=== PATIENT | female | born 1985 | race Two or more races ===

== ENCOUNTER 2020-04-27 11:52 | Outpatient (CLI) | payer BC ==
--- NOTE | 2020-04-27 12:36 | RAD ---
EXAM: XR Knee Lt 3 View PROVIDED CLINICAL HISTORY: Pain FINDINGS: There is no evidence for fracture or other acute osseous abnormality. Alignment appears anatomic. Alesha nt spaces appear preserved. IMPRESSION: No evidence for an acute osseous abnormality or significant arthropathy.
== END 2020-04-27 11:53 | disposition home or self-care (01) ==
LOC: BICRAD 11:52
PROVIDERS: ATTEND Family Medicine
DX: M25.562 Pain in left knee (principal)

== ENCOUNTER 2020-04-30 09:50 | Outpatient (CLI) | payer BC ==
--- NOTE | 2020-04-30 15:05 | MRI ---
MRI OF THE RIGHT KNEE WITHOUT CONTRAST: INDICATION: Acute right knee pain. COMPARISON: Right knee radiographs dated 04/19/2020. FINDINGS: There is a focal full-thickness articular cartilage defect involving the anterior aspect of the later al femoral condyle measuring 1.1 x 1.0 cm. There is a vertically oriented tear involving the anterio r horn of the lateral meniscus. The medial meniscus is intact. There is a full-thickness articular cartilage defect involving the medial femoral trochlea measuring 8 mm. There is a 6 and 4 mm intraar ticular body seen adjacent to the PCL. The MCL, ACL, PCL, and LCLC are intact. The extensor mechanis m is intact. There are small marginal osteophytes affecting the major compartments of the left knee. IMPRESSION: 1. Focal full-thickness articular cartilage defect of the anterolateral lateral femoral condyle with intraarticular bodies. 2. Vertically oriented tear involving the superior aspect of the anterior horn of the lateral menisc us. 3. Small focal full-thickness defect involving the medial femoral trochlea measuring 8 mm. POS: BH
== END 2020-04-30 09:51 | disposition home or self-care (01) ==
LOC: TBSIIMAG 09:50
PROVIDERS: ATTEND Orthopaedic Surgery
DX: M25.561 Pain in right knee (principal); S83.281A Other tear of lateral meniscus, current injury, right knee, initial encounter; M94.8X6 Other specified disorders of cartilage, lower leg

== ENCOUNTER 2020-05-22 07:48 | Outpatient (CLI) | payer BC, OTHER ==
[2020-05-22 11:35] LABS: BHCG - Serum Negative (NEGATIVE); Pregs Control Background? CLEAR/WHITE (CLR/WHITE); Pregs Control Bar Appear? YES (CONTROL BAR)
[2020-05-22 17:27] LABS: SARS-CoV-2 MS2 Positive; SARS-CoV-2 N Gene Negative; SARS-CoV-2 S Gene Negative; SARS-CoV-2 by NAA Not Detected (NotDetected); SARS-CoV-2 orf1ab Negative
== END 2020-05-22 07:49 | disposition home or self-care (01) ==
LOC: LABBT 07:48
PROVIDERS: ATTEND Orthopaedic Surgery
DX: Z01.812 Encounter for preprocedural laboratory examination (principal); Z20.828 Contact with and (suspected) exposure to other viral communicable diseases; S83.281A Other tear of lateral meniscus, current injury, right knee, initial encounter; M24.19 Other articular cartilage disorders, other specified site
CPT/HCPCS: 84703; 87635; U0003

== ENCOUNTER 2020-05-25 05:49 | Day surgery (SDC) | payer BC ==
[2020-05-24 09:54] VITALS: BMI 45.4
[2020-05-25] MEDS ORDERED: Bupivacaine HCl 0.5%/Epinephrine 1:200,000/PF 30 ml Vial ONE ×2 (06:04→09:51)
[2020-05-25] MEDS ORDERED: Bupivacaine/Epinephrine 0.25% 30 ML VIAL ONE (06:04)
[2020-05-25] MEDS ORDERED: Clindamycin/D5W 600 mg/50 ml Premix Bag ONE (06:07)
[2020-05-25] MEDS ORDERED: PROPOFOL 20 ML ONE (06:11)
[2020-05-25] MEDS ORDERED: Fentanyl 100 MCG/2 ML VIAL ONE ×2 (07:10→09:15)
[2020-05-25] MEDS ORDERED: Vancomycin 1.5 GRAM/300 ML BAG ONE (07:28)
[2020-05-25] MEDS ORDERED: Ketorolac Tromethamine 30 MG/ML VIAL ONE (09:51)
[2020-05-25] MEDS ORDERED: Ondansetron PF 4 MG/2 ML Vial ONE (09:51)
[2020-05-25] MEDS ORDERED: Lidocaine 1% PF 5 ML VIAL ONE (09:51)
[2020-05-25] MEDS ORDERED: Lidocaine 2% w/Epinephrine 1:200K 20 ML VIAL ONE (09:51)
[2020-05-25] MEDS ORDERED: Dexamethasone 20 MG/5 ML VIAL ONE (09:51)
[2020-05-25] MEDS ORDERED: PROPOFOL 200 MG/20 ML VIAL ONE (09:51)
[2020-05-25] MEDS ORDERED: HYDROcodone/Acetaminophen 5/325 mg Tablet ONE (12:08)
--- NOTE | 2020-05-25 19:31 | OP ---
DATE OF PROCEDURE: 05/25/2020 PREOPERATIVE DIAGNOSIS: Right knee grade 4 lesion, lateral femoral condyle. POSTOPERATIVE DIAGNOSES: 1. Grade 4 lesion, lateral femoral condyle, 1 cm in diameter. 2. Small unstable chondral flap on the leading edge of the medial femoral condyle toward the notch. 3. 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 4. 3 mm grade 4 lesion of the lateral femoral condyle just inferior to the larger lesion. PROCEDURES PERFORMED: 1. Right knee arthroscopy with debridement and shaving of unstable chondral flaps to include medial femoral condyle, lateral femoral condyle, and tibial plateau. 2. Removal of small loose bodies x2. These were approximately 3 to 5 mm in diameter. 3. Open repair of grade 4 lesion, lateral femoral condyle with allograft osteochondral plug. INTERNAL MEDICINE PHYSICIAN ASSISTANT: Dean Iqbal PA-C. The commercial escrow assistant surgeon was present throughout the entirety of the procedure to include the approach, the fixation of the grade 4 lesion, and closure. BLOOD LOSS: Minimal. COMPLICATIONS: None. The patient did have a general anesthetic, also had a local knee block, went to recovery room in stable condition. There was no hardware placed, but we did use again a fresh 10 mm allograft osteochondral plug. INDICATIONS: A 34-year-old female who has been having problems with pain, swelling, and catching in the knee and was found on MRI scan to have grade 4 lesion of lateral femoral condyle. At this time, she opted to have surgery. DESCRIPTION OF PROCEDURE: After all appropriate consent forms were explained and signed, she was taken to the operative room and at this time was given general anesthetic. Once the level of anesthesia was appropriate, she had a tourniquet placed on the right thigh with a hip bump placed underneath the right hip and then a pad placed along the lateral aspect of the table to hold the leg in place when the knee was flexed at 90. We then also taped the same bag onto the bed. At this time, the right lower extremity was prepped and draped in standard surgical fashion. The limb was then exsanguinated. Tourniquet was taken to 300 mmHg. Inferolateral portal was established. Scope was placed into the knee joint. A needle localization technique was then used to make a medial working portal. Diagnostic arthroscopy commenced in the notch. The ACL and PCL were probed, found to be intact. The medial compartment showed there to be an unstable chondral flap on the edge of the medial femoral condyle. This was taken down with a shaver back to a stable base. Otherwise, the tibial plateau, femur, and medial meniscus were intact. The lateral compartment showed a small loose body directly beneath the lateral meniscus. This was removed with a suction shaver device. The lateral meniscus itself was intact. There was some grade 2 chondromalacia noted on the lateral tibial plateau and at this time, upon evaluation of the femur, there was a large grade 4 lesion. Once the loose cartilage was debrided, this was about 1 cm in diameter. Just below this was another 2 to 3 mm grade 4 lesion. The gutters were swept through. No loose bodies were noted. There was another small loose body noted in the suprapatellar pouch. Again, it was sucked up into the shaver device. The patellofemoral joint was noted to be in good condition. At this time, the scope was removed. We then made an anterior incision just to the lateral side of the patella down through skin only with a 10 blade. Bovie was used to coagulate any brisk venous bleeding. We then our subcutaneous tissues from the underlying fascia and at this time, a new blade was used to make a lateral arthrotomy being careful not to injure the underlying cartilage. Once this was done, some excess fat pad was removed sharply. The Bovie was used to coagulate any brisk venous bleeding. We were then able to easily visualize our defect by placing a blunt Hohmann into the notch and gently pushing the patella out of the way and using an [place] along the lateral edge of the lateral femoral condyle. At this time, we then took our 10 mm Sizer and got that flush on our defect, placing a guidewire in the central aspect of this. We then reamed to a depth of 8 mm with our reamer. Once this was done, all loose bone and cartilaginous debris was removed and we thoroughly irrigated this area. We then took our previously prepared graft, which was a fresh allograft and placed the plug in the appropriate position and gently tapped it into place. This was felt to be stable and was flushed with the [place] articular cartilage, and for the lesion below it we drilled one drill hole followed by taking some autologous blood from the patient and soaking in some BioCartilage and we then placed some BioCartilage into this defect. Once this was smoothed over, we then mixed up some sealant and the sealant was sprayed over top of the BioCartilage and at this time, we waited 5 minutes without moving the knee. At this time, we then gently irrigated our wound followed by closing our lateral arthrotomy with multiple interrupted #2 Vicryl. We then used some running Stratafix to close subcutaneous and subdermal layers, followed by Surgicel skin glue for the skin. The medial portal was closed with one 2-0 Vicryl and Surgicel skin glue on the skin as well. Once the glue had dried, bulky sterile dressing was applied. Tourniquet was let down. We then placed a cooling unit on top of the right knee as well as placing the patient's leg in the knee immobilizer. At this time, the patient was then transferred over to recovery room bed. She was awakened, taken to recovery room in stable condition. All counts were correct at the end of the case and she did receive preoperative IV antibiotics. Job ID: [id number]
== END 2020-05-25 12:50 | disposition home or self-care (01) ==
LOC: SDC 05:49
PROVIDERS: ATTEND Orthopaedic Surgery
PROC: 0SBC4ZZ Excision of Right Knee Joint, Percutaneous Endoscopic Approach (ICD-10-PCS; principal; 2020-05-25)
PROC: 0SUC0KZ Supplement Right Knee Joint with Nonautologous Tissue Substitute, Open Approach (ICD-10-PCS; principal; 2020-05-25)
DX: M23.8X1 Other internal derangements of right knee (principal); M94.261 Chondromalacia, right knee; M23.41 Loose body in knee, right knee; E66.01 Morbid (severe) obesity due to excess calories; Z68.42 Body mass index [BMI] 45.0-49.9, adult; Z88.1 Allergy status to other antibiotic agents
CPT/HCPCS: J1100; J1885; J2405; J2704; J3010; J3370; J3490